=== PATIENT | female | born 1985 | race Caucasian/White ===

== ENCOUNTER 2016-10-18 17:12 | Outpatient (CLI) | payer OTHER | END 2016-10-18 20:10 | disposition home or self-care (01) | LOC: GENOP 17:12 | DX: O46.8X3 Other antepartum hemorrhage, third trimester (principal); N93.0 Postcoital and contact bleeding; Z3A.37 37 weeks gestation of pregnancy | CPT/HCPCS: G0463 ==

== ENCOUNTER 2016-10-24 11:15 | Outpatient (CLI) | payer OTHER ==
[2016-10-24 12:00] LABS: HEMOGLOBIN 12.8 gm/dl (12.3-15.3)
[2016-10-24 12:26] LABS: RED BLOOD COUNT 4.21 M/UL (4.00-5.10)
== END 2016-10-24 11:50 | disposition home or self-care (01) ==
LOC: OB 11:15 → GENOP 11:15 → OB 11:50 → GENOP 11:50 → OB 10-26 11:11 → EDSTATUS 10-26 13:34
PROVIDERS: Obstetrics & Gynecology
DX: Z01.812 Encounter for preprocedural laboratory examination (principal); O34.219 Maternal care for unspecified type scar from previous cesarean delivery; Z3A.00 Weeks of gestation of pregnancy not specified
CPT/HCPCS: 80307; 81001; 85025; J7120

== ENCOUNTER 2016-10-26 06:35 | Inpatient (IN) | payer OTHER ==
[~2016-10-26] VITALS: Ht 172.7 cm; Wt 81.6 kg
[2016-10-27 02:53] LABS: HEMOGLOBIN 11.4 gm/dl (12.3-15.3)
== END 2016-10-29 12:28 | disposition home or self-care (01) | DRG 765 ==
LOC: OB 06:35
PROVIDERS: ADMIT Obstetrics & Gynecology
PROC: 10D00Z1 Extraction of Products of Conception, Low, Open Approach (ICD-10-PCS; principal; 2016-10-26 09:00)
DX: O34.211 Maternal care for low transverse scar from previous cesarean delivery (principal); O99.324 Drug use complicating childbirth; N85.8 Other specified noninflammatory disorders of uterus; F11.90 Opioid use, unspecified, uncomplicated; Z3A.39 39 weeks gestation of pregnancy; Z37.0 Single live birth
CPT/HCPCS: 36415; 80307; 81001; 82800; 85014; 85018; 85025; 90715; 94640; 94664; C9113; J0690; J2274; J2590; J2765; J7120; Q0162